=== PATIENT | female | born 1990 | race African-American/Black ===

== ENCOUNTER 2021-03-20 12:32 | Emergency (ER) | payer OTHER ==
[~2021-03-20] VITALS: Ht 157.5 cm; Wt 76.7 kg
[2021-03-20 12:37] VITALS: BP 116/64
--- NOTE | 2021-03-20 13:05 | NUR ---
Patient ambulated with steady gait to bed 2.
--- NOTE | 2021-03-20 13:05 | NUR ---
31YO F C/O VAGINAL BLEEDING X 2 WEEKS. CONSUMES 5 HEAVILY-SOAKED PADS PER DAY, WITH NOTED BLOOD CLOTS. ALSO WITH VOMITING, CHILLS AND 6/10 RIGHT-SIDED ABDOMINAL PAIN. DENIES FEVER. PT UNDERWENT CSECTION 1 MONTH AGO. PMH: NONE MEDS: NONE NKA
--- NOTE | 2021-03-20 13:17 | NUR ---
DEVYN DIAZ AT BEDSIDE EXAMINING PT
--- NOTE | 2021-03-20 13:39 | NUR ---
ULTRASOUND BEDSIDE WITH PT
--- NOTE | 2021-03-20 14:17 | NUR ---
LABS COLLECTED BEDSIDE. RN WALKED BLOODWORK OVER TO LAB
[2021-03-20 14:27] LABS: BASOPHILS % (AUTO) 0.6 % (0.0-2.0); EOSINOPHILS # (AUTO) 0.1 K/uL (0-0.4); EOSINOPHILS % (AUTO) 1.6 % (0.0-4.0); HEMOGLOBIN 8.4 g/dL (12.0-16.0); LYMPHOCYTES # (AUTO) 1.9 K/uL (2.5-16.5); LYMPHOCYTES % (AUTO) 38.1 % (20.5-51.1); MEAN CORPUSCULAR HEMOGLOBIN 21 pg (27-31); MEAN CORPUSCULAR HGB CONC 30 g/dL (33-37); MEAN CORPUSCULAR VOLUME 71.2 fL (80-94); MONOCYTES # (AUTO) 0.4 K/uL (0.8-1.0); MONOCYTES % (AUTO) 8.5 % (1.7-9.3); NEUTROPHILS # (AUTO) 2.6 K/uL (1.8-7.7); NEUTROPHILS % (AUTO) 51.2 % (42.2-75.2); PLATELET COUNT (AUTO) 218 K/uL (140-450); RED BLOOD CELL COUNT(AUTO) 3.93 MIL/uL (4.20-5.40); RED CELL DISTRIBUTION WIDTH 22.9 % (11.6-13.7)
[2021-03-20] MEDS ORDERED: CEPH-588 PO (14:30)
[2021-03-20 14:31] LABS: APPEARANCE,URINE CLEAR (CLEAR); BILIRUBIN,URINE NEGATIVE (NEGATIVE); BLOOD, URINE 3+ (NEGATIVE); COLOR,URINE YELLOW (YELLOW); UGLUCOSE NEGATIVE (NEGATIVE)
[2021-03-20 14:36] VITALS: BP 116/64
--- NOTE | 2021-03-20 14:37 | NUR ---
Patient discharged with v/s stable. Written and verbal after care instructions given and explained. Patient alert, oriented and verbalized understanding of instructions. Ambulatory with steady gait. All questions addressed prior to discharge. ID band removed. Patient advised to follow up with PMD. Rx of CEPHALEXIN 500 MG PO BID given. Patient educated on indication of medication including possible reaction and side effects. Opportunity to ask questions provided and answered.
[2021-03-20 14:38] LABS: LEUKOCYTE ESTERASE ,URINE NEGATIVE (NEGATIVE); NITRITE, URINE NEGATIVE (NEGATIVE)
--- NOTE | 2021-03-20 14:41 | NUR ---
PT ELOPED FROM ED. DID NOT WANT TO WAIT FOR TEST RESULTS
[2021-03-20 14:51] LABS: RBC,URINE TOO NUMEROUS TO COUN /HPF (0-5)
[2021-03-20 14:52] LABS: WBC,URINE NONE SEEN /HPF (0-5)
== END 2021-03-20 14:41 | disposition left against medical advice (07) ==
LOC: MED 12:32
DX: N93.8 Other specified abnormal uterine and vaginal bleeding (principal); N39.0 Urinary tract infection, site not specified; Z79.899 Other long term (current) drug therapy
CPT/HCPCS: 36415; 76856; 81001; 81002; 81025; 84702; 85025; 85610; 85730; 99284